=== PATIENT | male | born 1975 | race Two or more races ===

== ENCOUNTER 2022-08-09 15:24 | Outpatient (CLI) | payer OTHER | END 2022-08-09 15:32 | disposition home or self-care (01) | LOC: RAD 15:24 | DX: M16.11 Unilateral primary osteoarthritis, right hip (principal) ==

== ENCOUNTER 2023-06-13 12:19 | Outpatient (CLI) | payer BC | END 2023-06-13 13:05 | disposition home or self-care (01) | LOC: TOM 12:19 | PROVIDERS: ATTEND Colon & Rectal Surgery | DX: R55 Syncope and collapse (principal); I12.9 Hypertensive chronic kidney disease with stage 1 through stage 4 chronic kidney disease, or unspecified chronic kidney disease; N18.2 Chronic kidney disease, stage 2 (mild) ==

== ENCOUNTER 2023-06-15 13:46 | Outpatient (CLI) | payer BC | END 2023-06-15 13:49 | disposition home or self-care (01) | LOC: SONOGRAMA 13:46 | DX: I12.9 Hypertensive chronic kidney disease with stage 1 through stage 4 chronic kidney disease, or unspecified chronic kidney disease (principal); N18.2 Chronic kidney disease, stage 2 (mild) ==

== ENCOUNTER 2024-08-05 13:56 | Outpatient (CLI) | payer BC | END 2024-08-05 14:00 | disposition home or self-care (01) | LOC: RAD 13:56 | DX: J40 Bronchitis, not specified as acute or chronic (principal); J44.0 Chronic obstructive pulmonary disease with (acute) lower respiratory infection ==